=== PATIENT | female | born 1995 ===

== ENCOUNTER 2017-07-02 08:30 | Observation (INO) ==
[2017-07-02 09:20] LABS: Basophils % 0.6 % (0.0-0.8); Eosinophils # 0.1 10*3/uL (0.0-0.87); Eosinophils % 1.8 % (0.00-10.9); Hematocrit 38.2 VOL% (35.7-47.0); Hemoglobin 12.6 GM/DL (12.0-16.0); Immature Granulocytes % 0.4 %; Immature Granulocytes Absolute 0.03 #; Lymphocytes # 1.2 10*3/uL (1.4-4.0); Lymphocytes % 17.1 % (21.3-54.2); Mean Corpuscular Hemoglobin 30 PG (27-34); Mean Corpuscular Volume 90.7 FL (87-102); Mean Platelet Volume 10.5 FL (9.6-12.0); Monocytes # 0.5 10*3/uL (0.11-0.8); Neutrophils # 5.3 10*3/uL (1.4-7.4); Neutrophils % 73.1 % (38.7-73.9); Platelet Count 356 T/CUMM (130-400); Red Blood Count 4.21 MC/CUMM (3.8-5.5); Red Cell Distribution Width 12.9 % (9.3-17.3); White Blood Count 7.3 T/CUMM (4-12)
[2017-07-02 09:39] LABS: Bilirubin,Total 0.8 MG/DL (0.2-1.0); Osmolality,Calculated 274.5 MOS/KG (273-304)
[2017-07-02 09:53] LABS: Apearance,Urine CLEAR (Clear); Bilirubin,Urine Negative (Negative); Blood, Urine Negative (Negative); Glucose,Urine (UA) Negative (Negative); Ketones,Urine Negative (Negative); Mucus,Urine Occasional /LPF (Occasional); Nitrite,Urine Negative (Negative); Protein,Urine Negative; Squamous Epithelial Cell,Urine Occasional /HPF (0-10); Urine Color Yellow (Yellow); WBC,Urine 1 /HPF (0-6)
[2017-07-02] MEDS ORDERED: LEVOFLOXACIN INJ 500 MG in PREMIX 1 EACH IV ONE (11:57)
[2017-07-02] MEDS ORDERED: MORPHINE 2 MG/1 ML SYRINGE IV PRN (12:01)
[2017-07-02] MEDS ORDERED: BUPIVACAINE 0.25% 50 ML VIAL ONE (12:15)
[2017-07-02] MEDS ORDERED: LIDOCAINE 1%/EPI INJ 20 ML VIAL ONE (12:15)
[2017-07-02] MEDS ORDERED: LEVOFLOXACIN INJ 100 ML IV ONE (12:17)
[2017-07-02] MEDS: LACTATED RINGERS 1,000 ML IV SCH (12:37)
[2017-07-02] MEDS ORDERED: HYDROmorphone 2 MG/1 ML VIAL ONE (13:51)
[2017-07-02] MEDS ORDERED: ONDANSETRON 4 MG/2 ML VIAL ONE ×2 (13:51→13:53)
[2017-07-02] MEDS ORDERED: fentaNYL 100 MCG/2 ML VIAL ONE (13:53)
[2017-07-02] MEDS ORDERED: DEXAMETHASONE 10 MG/1 ML VIAL ONE (13:53)
[2017-07-02] MEDS ORDERED: PROPOFOL 200 MG/20 ML VIAL IV ONE (13:53)
[2017-07-02] MEDS ORDERED: SEVOFLURANE 1 UNIT/15 MINUTE INH ONE (13:53)
[2017-07-02] MEDS ORDERED: NEOSTIGMINE 10 MG/10 ML VIAL ONE (13:54)
[2017-07-02] MEDS ORDERED: SUCCINYLCHOLINE 200 MG/10 ML VIAL ONE (13:54)
[2017-07-02] MEDS ORDERED: GLYCOPYRROLATE 0.4 MG/2 ML VIAL ONE (13:54)
[2017-07-02] MEDS ORDERED: ACETAMINOPHEN 1,000 MG/100 ML VIAL IV ONE (13:54)
[2017-07-02] MEDS ORDERED: ROCURONIUM 100 MG/10 ML VIAL IV ONE (13:54)
[2017-07-02] MEDS ORDERED: ONDANSETRON 4 MG/2 ML VIAL IV PRN (14:00)
[2017-07-02] MEDS ORDERED: LACTATED RINGERS 1,000 ML IV SCH (14:00)
[2017-07-02] MEDS: HYDROmorphone 2 MG/1 ML VIAL IV PRN ×2 (14:00→14:05)
[2017-07-03] MEDS: LACTATED RINGERS 1,000 ML IV SCH ×3 (00:53→11:40)
[2017-07-03] MEDS ORDERED: LEVOFLOXACIN INJ 500 MG in PREMIX 1 EACH IV SCH (06:00)
[2017-07-03] MEDS ORDERED: oxyCODONE/ACETAMINOPHEN 5-325 MG TABLET PO PRN (14:15)
[2017-07-03 16:49] VITALS: BP 100/59
== END 2017-07-03 17:59 | disposition home or self-care (01) ==
LOC: N.ED 08:30 → N.3E 12:38 → N.OR 12:38 → N.SDSINP 12:40 → N.3E 14:47
PROVIDERS: ADMIT Surgery; ATTEND Surgery

== ENCOUNTER 2018-05-14 17:48 | Inpatient (IN) ==
[2018-05-14 18:41] LABS: Apearance,Urine CLEAR (Clear); Bilirubin,Urine Negative (Negative); Blood, Urine Negative (Negative); Glucose,Urine (UA) Negative (Negative); Ketones,Urine 20 mg/dL (Negative); Mucus,Urine Occasional /LPF (Occasional); Nitrite,Urine Negative (Negative); Protein,Urine Negative; RBC,Urine <1 /HPF (0-4); Squamous Epithelial Cell,Urine Occasional /HPF (0-10); Urine Color Yellow (Yellow); WBC,Urine 1 /HPF (0-6)
[2018-05-14] MEDS: LACTATED RINGERS 1,000 ML IV SCH (22:45)
[2018-05-15] MEDS ORDERED: ACETAMINOPHEN 325 MG TABLET PO PRN ×2 (01:54→08:35)
[2018-05-15] MEDS ORDERED: ONDANSETRON 4 MG/2 ML VIAL IV PRN ×2 (01:54→08:35)
[2018-05-15] MEDS ORDERED: MEPERIDINE 50 MG/1 ML VIAL IV PRN (01:54)
[2018-05-15 05:02] LABS: Basophils % 0.4 % (0.0-0.8); Eosinophils # 0.1 10*3/uL (0.0-0.87); Eosinophils % 0.9 % (0.00-10.9); Hematocrit 26.9 VOL% (35.7-47.0); Hemoglobin 8.7 GM/DL (12.0-16.0); Immature Granulocytes % 0.4 %; Immature Granulocytes Absolute 0.03 #; Lymphocytes # 2.1 10*3/uL (1.4-4.0); Lymphocytes % 24.4 % (21.3-54.2); Mean Corpuscular HGB Conc 32.3 GM/DL (32-36); Mean Corpuscular Hemoglobin 28 PG (27-34); Mean Corpuscular Volume 87.6 FL (87-102); Mean Platelet Volume 10.7 FL (9.6-12.0); Monocytes # 0.7 10*3/uL (0.11-0.8); Monocytes % 8.5 % (1.7-12.7); Neutrophils # 5.6 10*3/uL (1.4-7.4); Neutrophils % 65.4 % (38.7-73.9); Platelet Count 295 T/CUMM (130-400); Red Blood Count 3.07 MC/CUMM (3.8-5.5); Red Cell Distribution Width 13.4 % (9.3-17.3); White Blood Count 8.5 T/CUMM (4-12)
[2018-05-15] MEDS ORDERED: CITRIC ACID/SODIUM CITRATE 30 ML UDCUP PO ONE (06:12)
[2018-05-15] MEDS ORDERED: FAMOTIDINE 20 MG/2 ML VIAL IV ONE (06:12)
[2018-05-15] MEDS ORDERED: CLINDAMYCIN INJ 900 MG in PREMIX 1 EACH IV ONE (06:13)
[2018-05-15] MEDS ORDERED: OXYTOCIN/LR 30 UNIT/1,000 ML BAG IV ONE (07:00)
[2018-05-15] MEDS ORDERED: OXYTOCIN 10 UNIT/ML VIAL IM ONE (07:11)
[2018-05-15] MEDS ORDERED: OXYTOCIN 10 UNIT/ML VIAL ONE (07:13)
[2018-05-15 08:28] LABS: Cord Arterial Blood HCO3 19.3 MMOL/L
[2018-05-15 08:29] LABS: Cord Venous Blood HCO3 22.4 MMOL/L; Cord Venous Blood PCO2 37.5 MMHG; Cord Venous Blood PO2 32.6 MMHG
[2018-05-15] MEDS ORDERED: OXYTOCIN/LR 20 UNIT/1,000 ML BAG IV ONE (08:35)
[2018-05-15] MEDS ORDERED: SIMETHICONE CHEW 80 MG TABLET PO PRN (08:35)
[2018-05-15] MEDS ORDERED: RHO(D) IMMUNE GLOBULIN 300 MCG SYRINGE IM ONE (08:35)
[2018-05-15] MEDS ORDERED: ALBUTEROL/IPRATROPIUM 3 ML NEB RESP TX PRN (08:37)
[2018-05-15] MEDS ORDERED: methylPREDNISolone SOD SUC 125 MG/2 ML VIAL IV ONE (08:44)
[2018-05-15] MEDS ORDERED: methylPREDNISolone SOD SUC 125 MG/2 ML VIAL ONE (08:49)
[2018-05-15] MEDS ORDERED: MORPHINE 10 MG/10 ML VIAL ONE (08:50)
[2018-05-15] MEDS: LACTATED RINGERS 1,000 ML IV SCH ×2 (08:50→17:05)
[2018-05-15 08:51] LABS: Apearance,Urine Slightly Hazy (Clear); Bilirubin,Urine Negative (Negative); Blood, Urine Negative (Negative); Glucose,Urine (UA) Negative (Negative); Ketones,Urine 20 mg/dL (Negative); Mucus,Urine Few /LPF (Occasional); Nitrite,Urine Negative (Negative); Protein,Urine Negative; RBC,Urine 1 /HPF (0-4); Squamous Epithelial Cell,Urine Occasional /HPF (0-10); Transitional Epi Cells,Urine Occasional /HPF (<1); Urine Color Yellow (Yellow); Urine Specific Gravity 1.016 (1.001-1.035); WBC,Urine 4 /HPF (0-6)
[2018-05-15] MEDS ORDERED: PROPOFOL 200 MG/20 ML VIAL IV ONE (10:44)
[2018-05-15] MEDS ORDERED: ONDANSETRON 4 MG/2 ML VIAL ONE (10:44)
[2018-05-15 11:58] LABS: Basophils % 0.2 % (0.0-0.8); Eosinophils % 0.1 % (0.00-10.9); Hematocrit 28.9 VOL% (35.7-47.0); Hemoglobin 9.2 GM/DL (12.0-16.0); Immature Granulocytes % 0.6 %; Immature Granulocytes Absolute 0.12 #; Lymphocytes % 5.2 % (21.3-54.2); Mean Corpuscular HGB Conc 31.8 GM/DL (32-36); Mean Corpuscular Hemoglobin 28 PG (27-34); Mean Corpuscular Volume 87.6 FL (87-102); Monocytes # 0.4 10*3/uL (0.11-0.8); Monocytes % 2.2 % (1.7-12.7); Neutrophils % 91.7 % (38.7-73.9); Platelet Count 323 T/CUMM (130-400); Red Cell Distribution Width 13.3 % (9.3-17.3); White Blood Count 19.6 T/CUMM (4-12)
[2018-05-15 12:41] LABS: Band Neutrophils 1 % (0-10); Lymphocytes 4 % (20-55); Segmented Neutrophils 92 % (50-85); Total Cells Counted 100
[2018-05-15 12:45] LABS: Anisocytosis 1+; Hypochromasia 1+; Platelet Estimate Normal
[2018-05-15] MEDS: CLINDAMYCIN INJ 900 MG in PREMIX 1 EACH IV SCH (15:49)
[2018-05-15] MEDS: IBUPROFEN 800 MG TABLET PO PRN (15:54)
[2018-05-15] MEDS ORDERED: diphenhydrAMINE 50 MG/1 ML VIAL IV PRN (17:26)
[2018-05-15 20:43] LABS: Basophils % 0.1 % (0.0-0.8); Hematocrit 24.6 VOL% (35.7-47.0); Immature Granulocytes % 0.5 %; Immature Granulocytes Absolute 0.07 #; Lymphocytes # 1.3 10*3/uL (1.4-4.0); Lymphocytes % 8.8 % (21.3-54.2); Mean Corpuscular HGB Conc 32.5 GM/DL (32-36); Mean Corpuscular Hemoglobin 29 PG (27-34); Mean Corpuscular Volume 87.9 FL (87-102); Mean Platelet Volume 10.9 FL (9.6-12.0); Monocytes # 1.1 10*3/uL (0.11-0.8); Monocytes % 7.3 % (1.7-12.7); Neutrophils # 12.6 10*3/uL (1.4-7.4); Neutrophils % 83.3 % (38.7-73.9); Platelet Count 295 T/CUMM (130-400); Red Cell Distribution Width 13.2 % (9.3-17.3); White Blood Count 15.2 T/CUMM (4-12)
[2018-05-16] MEDS: DOCUSATE SODIUM 100 MG CAPSULE PO SCH ×4 (01:17→21:52)
[2018-05-16] MEDS: CLINDAMYCIN INJ 900 MG in PREMIX 1 EACH IV SCH (01:18)
[2018-05-16] MEDS: LACTATED RINGERS 1,000 ML IV SCH (01:39)
[2018-05-16] MEDS: IBUPROFEN 800 MG TABLET PO PRN ×2 (04:23→16:31)
[2018-05-16 06:36] LABS: Basophils % 0.3 % (0.0-0.8); Eosinophils # 0.1 10*3/uL (0.0-0.87); Eosinophils % 0.4 % (0.00-10.9); Hemoglobin 7.3 GM/DL (12.0-16.0); Immature Granulocytes % 0.6 %; Immature Granulocytes Absolute 0.07 #; Lymphocytes # 2.4 10*3/uL (1.4-4.0); Lymphocytes % 19.9 % (21.3-54.2); Mean Corpuscular HGB Conc 31.7 GM/DL (32-36); Mean Corpuscular Hemoglobin 28 PG (27-34); Mean Corpuscular Volume 88.1 FL (87-102); Mean Platelet Volume 11.2 FL (9.6-12.0); Monocytes # 1.2 10*3/uL (0.11-0.8); Monocytes % 9.9 % (1.7-12.7); Neutrophils # 8.2 10*3/uL (1.4-7.4); Neutrophils % 68.9 % (38.7-73.9); Platelet Count 259 T/CUMM (130-400); Red Blood Count 2.61 MC/CUMM (3.8-5.5); Red Cell Distribution Width 13.5 % (9.3-17.3); White Blood Count 11.9 T/CUMM (4-12)
[2018-05-16] MEDS ORDERED: METOCLOPRAMIDE 10 MG TABLET PO PRN (09:00)
[2018-05-16] MEDS: MAGNESIUM HYDROXIDE SUSP 30 ML UDCUP PO PRN (09:05)
[2018-05-16] MEDS: MULTIVITAMIN (PRENATAL) TABLET PO SCH ×2 (09:06→09:30)
[2018-05-16] MEDS: FERROUS SULFATE 325 MG TABLET PO SCH ×2 (09:06→21:52)
[2018-05-16] MEDS ORDERED: SODIUM CHLORIDE 0.9% 1,000 ML IV PRN (09:09)
[2018-05-16 18:27] LABS: Hematocrit 30.7 VOL% (35.7-47.0)
[2018-05-17] MEDS: IBUPROFEN 800 MG TABLET PO PRN ×2 (04:04→10:10)
[2018-05-17 05:38] LABS: Hematocrit 29.4 VOL% (35.7-47.0); Hemoglobin 9.6 GM/DL (12.0-16.0)
[2018-05-17] MEDS: FERROUS SULFATE 325 MG TABLET PO SCH (08:44)
[2018-05-17] MEDS: MULTIVITAMIN (PRENATAL) TABLET PO SCH (08:44)
[2018-05-17] MEDS: DOCUSATE SODIUM 100 MG CAPSULE PO SCH (08:44)
[2018-05-17] MEDS: MAGNESIUM HYDROXIDE SUSP 30 ML UDCUP PO PRN (08:45)
[2018-05-17 11:33] VITALS: BP 117/71
== END 2018-05-17 13:20 | disposition home or self-care (01) | DRG 540 ==
LOC: N.LDOUT 17:48 → N.LD 17:52 → N.OB 05-15 13:56
PROVIDERS: ADMIT Obstetrics & Gynecology; ATTEND Obstetrics & Gynecology
PROC: LDCSECT (ICD-10-PCS; 2018-05-15 07:30)

== ENCOUNTER 2019-11-22 20:13 | Observation (INO) ==
[2019-11-22 21:52] LABS: Basophils % 0.4 % (0.0-0.8); Eosinophils % 0.3 % (0.00-10.9); Hemoglobin 10.2 GM/DL (12.0-16.0); Immature Granulocytes % 0.8 %; Immature Granulocytes Absolute 0.09 #; Lymphocytes # 1.8 10*3/uL (1.4-4.0); Lymphocytes % 16.2 % (21.3-54.2); Neutrophils % 78.3 % (38.7-73.9); Platelet Count 317 T/CUMM (130-400); Red Blood Count 3.26 MC/CUMM (3.8-5.5); Red Cell Distribution Width 13.2 % (9.3-17.3); White Blood Count 11.3 T/CUMM (4-12)
[2019-11-22 22:11] LABS: Calcium 8.8 MG/DL (8.5-10.1); Osmolality,Calculated 273.7 MOS/KG (273-304)
[2019-11-23] MEDS ORDERED: IBUPROFEN 800 MG TABLET PO PRN (00:06)
[2019-11-23] MEDS ORDERED: MAGNESIUM HYDROXIDE SUSP 30 ML UDCUP PO PRN (00:06)
[2019-11-23] MEDS ORDERED: BISACODYL 10 MG SUPP RECTAL PRN (00:06)
[2019-11-23] MEDS ORDERED: ONDANSETRON 4 MG/2 ML VIAL IV PRN (00:06)
[2019-11-23] MEDS ORDERED: ACETAMINOPHEN 325 MG TABLET PO PRN (00:06)
[2019-11-23] MEDS ORDERED: LACTATED RINGERS 1,000 ML IV SCH (00:30)
[2019-11-23 07:44] VITALS: BP 91/56
[2019-11-23] MEDS ORDERED: DOCUSATE SODIUM 100 MG CAPSULE PO SCH (09:00)
== END 2019-11-23 11:21 | disposition home or self-care (01) ==
LOC: N.EDINP 20:13 → N.ED 20:13 → N.3E 11-23 00:42
PROVIDERS: ADMIT Obstetrics & Gynecology; ATTEND Obstetrics & Gynecology

== ENCOUNTER 2020-04-15 03:25 | Inpatient (IN) ==
[2020-04-15] MEDS ORDERED: CITRIC ACID/SODIUM CITRATE 30 ML UDCUP PO ONE (03:46)
[2020-04-15] MEDS ORDERED: FAMOTIDINE 20 MG/2 ML VIAL IV ONE (03:46)
[2020-04-15] MEDS ORDERED: CLINDAMYCIN INJ 900 MG in PREMIX 1 EACH IV ONE (03:46)
[2020-04-15] MEDS ORDERED: TERBUTALINE 1 MG/1 ML VIAL SUBCUT PRN (03:51)
[2020-04-15] MEDS ORDERED: MEPERIDINE 25 MG/1 ML VIAL IV PRN (03:52)
[2020-04-15] MEDS ORDERED: MEPERIDINE 50 MG/1 ML VIAL ONE ×2 (03:54→14:38)
[2020-04-15] MEDS: MEPERIDINE 50 MG/1 ML VIAL IV PRN ×4 (04:00→20:14)
[2020-04-15 04:25] LABS: Basophils % 0.3 % (0.0-0.8); Eosinophils # 0.1 10*3/uL (0.0-0.87); Eosinophils % 0.6 % (0.00-10.9); Hemoglobin 8.7 GM/DL (12.0-16.0); Immature Granulocytes % 0.7 %; Immature Granulocytes Absolute 0.07 #; Lymphocytes # 3.9 10*3/uL (1.4-4.0); Lymphocytes % 41.5 % (21.3-54.2); Mean Corpuscular HGB Conc 32.2 GM/DL (32-36); Mean Corpuscular Volume 83.9 FL (87-102); Mean Platelet Volume 11.1 FL (9.6-12.0); Monocytes % 6.8 % (1.7-12.7); Neutrophils % 50.1 % (38.7-73.9); Platelet Count 323 T/CUMM (130-400); Red Blood Count 3.22 MC/CUMM (3.8-5.5); Red Cell Distribution Width 14.6 % (9.3-17.3); White Blood Count 9.4 T/CUMM (4-12)
[2020-04-15] MEDS: LACTATED RINGERS 1,000 ML IV SCH ×2 (04:27→08:01)
[2020-04-15 04:44] LABS: Alanine Aminotransferase < 9 U/L (13-56); Albumin 2.6 G/DL (3.4-5.0); Alkaline Phosphatase 183 U/L (45-117); Aspartate Amino Transferase 14 U/L (0-37); Blood Urea Nitrogen 7 MG/DL (7-18); Calcium 8.6 MG/DL (8.5-10.1); Estimated Glom Filtration Rate 138 ML/MIN; Glucose 79 MG/DL (74-106); Osmolality,Calculated 273.5 MOS/KG (273-304); Total Protein 7.2 G/DL (6.4-8.3)
[2020-04-15] MEDS ORDERED: TRANEXAMIC ACID 1,000 MG/10 ML VIAL ONE (07:25)
[2020-04-15] MEDS ORDERED: miSOPROStoL 200 MCG TABLET ONE (07:25)
[2020-04-15] MEDS ORDERED: OXYTOCIN/LR 20 UNIT/1,000 ML BAG IV ONE ×2 (07:25→10:00)
[2020-04-15] MEDS ORDERED: METHYLERGONOVINE 0.2 MG/1 ML AMP ONE (07:25)
[2020-04-15] MEDS ORDERED: CARBOPROST TROMETHAMINE 250 MCG/ML AMP IM ONE (07:26)
[2020-04-15] MEDS ORDERED: OXYTOCIN 10 UNIT/ML VIAL ONE (07:27)
[2020-04-15] MEDS ORDERED: SODIUM CHLORIDE 0.9% 0 ML IV ONE (07:28)
[2020-04-15] MEDS ORDERED: BUPIVACAINE SPINAL 0.75% 2 ML AMP SPINAL ONE (08:25)
[2020-04-15] MEDS ORDERED: ONDANSETRON 4 MG/2 ML VIAL ONE (08:25)
[2020-04-15] MEDS ORDERED: fentaNYL 100 MCG/2 ML VIAL ONE (08:25)
[2020-04-15] MEDS ORDERED: MIDAZOLAM 2 MG/2 ML VIAL ONE (08:59)
[2020-04-15] MEDS ORDERED: KETOROLAC 30 MG/1 ML VIAL ONE (09:03)
[2020-04-15] MEDS ORDERED: BUPIVACAINE MPF 0.5% /EPI 30 ML VIAL ONE (09:03)
[2020-04-15 09:09] LABS: Cord Arterial Blood HCO3 22.2 MMOL/L
[2020-04-15 09:10] LABS: Cord Venous Blood HCO3 24.2 MMOL/L; Cord Venous Blood PCO2 44.6 MMHG; Cord Venous Blood PO2 28.1 MMHG
[2020-04-15 09:25] LABS: Bacteria,Urine Occasional /HPF (Few); Bilirubin,Urine Negative (Negative); Blood, Urine Negative (Negative); Glucose,Urine (UA) Negative (Negative); Ketones,Urine Negative (Negative); Mucus,Urine Many /LPF (Occasional); Nitrite,Urine Negative (Negative); Protein,Urine Negative; RBC,Urine 1 /HPF (0-4); Squamous Epithelial Cell,Urine Few /HPF (0-10); Urine Appearance CLEAR (Clear); Urine Color Yellow (Yellow); Urine Specific Gravity 1.025 (1.001-1.035); WBC,Urine 1 /HPF (0-6)
[2020-04-15] MEDS ORDERED: DEXAMETHASONE 4 MG/1 ML VIAL ONE (09:34)
[2020-04-15] MEDS ORDERED: ACETAMINOPHEN 325 MG TABLET PO PRN (10:00)
[2020-04-15] MEDS ORDERED: MAGNESIUM HYDROXIDE SUSP 30 ML UDCUP PO PRN (10:00)
[2020-04-15] MEDS ORDERED: LACTATED RINGERS 1,000 ML IV SCH (10:00)
[2020-04-15] MEDS ORDERED: SIMETHICONE CHEW 80 MG TABLET PO PRN (10:00)
[2020-04-15] MEDS ORDERED: RHO(D) IMMUNE GLOBULIN 300 MCG SYRINGE IM ONE (10:00)
[2020-04-15] MEDS ORDERED: diphenhydrAMINE 50 MG/1 ML VIAL IV ONE (11:17)
[2020-04-15] MEDS ORDERED: diphenhydrAMINE 50 MG/1 ML VIAL ONE (11:18)
[2020-04-15 15:57] LABS: Basophils % 0.1 % (0.0-0.8); Hematocrit 22.1 VOL% (35.7-47.0); Hemoglobin 7.2 GM/DL (12.0-16.0); Immature Granulocytes % 0.4 %; Immature Granulocytes Absolute 0.05 #; Lymphocytes # 1.1 10*3/uL (1.4-4.0); Lymphocytes % 7.7 % (21.3-54.2); Mean Corpuscular HGB Conc 32.6 GM/DL (32-36); Mean Corpuscular Volume 83.4 FL (87-102); Mean Platelet Volume 11.5 FL (9.6-12.0); Neutrophils % 89.8 % (38.7-73.9); Platelet Count 277 T/CUMM (130-400); Red Blood Count 2.65 MC/CUMM (3.8-5.5); Red Cell Distribution Width 14.5 % (9.3-17.3); White Blood Count 14.2 T/CUMM (4-12)
[2020-04-15] MEDS ORDERED: SODIUM CHLORIDE 0.9% 1,000 ML IV PRN (16:24)
[2020-04-15] MEDS: CLINDAMYCIN INJ 900 MG in PREMIX 1 EACH IV SCH (17:44)
[2020-04-15] MEDS ORDERED: ACETAMINOPHEN/CODEINE 300-30 MG TABLET PO PRN (19:25)
[2020-04-15] MEDS: KETOROLAC 30 MG/1 ML VIAL IV PRN (19:45)
[2020-04-15] MEDS: DOCUSATE SODIUM 100 MG CAPSULE PO SCH (20:07)
[2020-04-15] MEDS: ONDANSETRON 4 MG/2 ML VIAL IV PRN (20:15)
[2020-04-16] MEDS: KETOROLAC 30 MG/1 ML VIAL IV PRN ×2 (00:35→06:33)
[2020-04-16] MEDS: CLINDAMYCIN INJ 900 MG in PREMIX 1 EACH IV SCH (00:38)
[2020-04-16] MEDS: ONDANSETRON 4 MG/2 ML VIAL IV PRN (06:24)
[2020-04-16 06:30] LABS: Basophils # 0.1 10*3/uL (0.0-0.2); Basophils % 0.4 % (0.0-0.8); Eosinophils # 0.1 10*3/uL (0.0-0.87); Eosinophils % 0.4 % (0.00-10.9); Hematocrit 25.5 VOL% (35.7-47.0); Hemoglobin 8.5 GM/DL (12.0-16.0); Immature Granulocytes % 0.9 %; Immature Granulocytes Absolute 0.13 #; Lymphocytes # 2.6 10*3/uL (1.4-4.0); Lymphocytes % 18.6 % (21.3-54.2); Mean Corpuscular HGB Conc 33.3 GM/DL (32-36); Mean Corpuscular Volume 85.6 FL (87-102); Mean Platelet Volume 11.3 FL (9.6-12.0); Monocytes % 9.1 % (1.7-12.7); Neutrophils % 70.6 % (38.7-73.9); Platelet Count 261 T/CUMM (130-400); Red Blood Count 2.98 MC/CUMM (3.8-5.5); Red Cell Distribution Width 14.4 % (9.3-17.3); White Blood Count 14.1 T/CUMM (4-12)
[2020-04-16] MEDS: METOCLOPRAMIDE 10 MG TABLET PO SCH (09:29)
[2020-04-16] MEDS: DOCUSATE SODIUM 100 MG CAPSULE PO SCH ×2 (09:29→20:57)
[2020-04-16] MEDS: MULTIVITAMIN (PRENATAL) TABLET PO SCH (09:29)
[2020-04-16] MEDS: IBUPROFEN 800 MG TABLET PO PRN ×2 (09:35→23:13)
[2020-04-16] MEDS: oxyCODONE/ACETAMINOPHEN 5-325 MG TABLET PO PRN ×2 (14:16→23:12)
[2020-04-16] MEDS: FERROUS SULFATE 325 MG TABLET PO SCH ×2 (14:18→20:54)
[2020-04-17] MEDS: oxyCODONE/ACETAMINOPHEN 5-325 MG TABLET PO PRN (07:46)
[2020-04-17] MEDS: DOCUSATE SODIUM 100 MG CAPSULE PO SCH (07:47)
[2020-04-17] MEDS: METOCLOPRAMIDE 10 MG TABLET PO SCH ×2 (07:47)
[2020-04-17] MEDS: MULTIVITAMIN (PRENATAL) TABLET PO SCH (07:47)
[2020-04-17] MEDS: FERROUS SULFATE 325 MG TABLET PO SCH (07:47)
[2020-04-17 12:36] VITALS: BP 110/87
== END 2020-04-17 15:15 | disposition home or self-care (01) | DRG 540 ==
LOC: N.LDOUT 03:25 → N.LD 03:26 → N.OB 13:35
PROVIDERS: ADMIT Obstetrics & Gynecology; ATTEND Obstetrics & Gynecology
PROC: LDCSECT (ICD-10-PCS; 2020-04-15 08:30)

== ENCOUNTER 2021-12-13 09:59 | Inpatient (IN) ==
[2021-12-13] MEDS ORDERED: CARBOPROST TROMETHAMINE 250 MCG/ML AMP IM PRN (10:56)
[2021-12-13] MEDS ORDERED: LACTATED RINGERS 500 ML IV PRN (10:56)
[2021-12-13] MEDS ORDERED: ONDANSETRON 4 MG/2 ML VIAL IV PRN ×2 (10:56→16:55)
[2021-12-13] MEDS ORDERED: TRANEXAMIC ACID 1,000 MG in SODIUM CHLORIDE 0.9% 100 ML IV PRN (10:56)
[2021-12-13] MEDS ORDERED: OXYTOCIN/LR 20 UNIT/1,000 ML BAG IV ONE ×3 (10:56→16:55)
[2021-12-13] MEDS ORDERED: METHYLERGONOVINE 0.2 MG/1 ML AMP IM PRN (10:56)
[2021-12-13] MEDS ORDERED: miSOPROStoL 200 MCG TABLET RECTAL PRN (10:56)
[2021-12-13] MEDS ORDERED: LACTATED RINGERS 250 ML IV ONE (10:56)
[2021-12-13] MEDS: LACTATED RINGERS 1,000 ML IV SCH ×2 (11:10→13:19)
[2021-12-13 11:23] LABS: Basophils % 0.3 % (0.0-0.8); Eosinophils # 0.1 10*3/uL (0.0-0.87); Eosinophils % 1.2 % (0.00-10.9); Hematocrit 27.7 VOL% (35.7-47.0); Hemoglobin 8.9 GM/DL (12.0-16.0); Immature Granulocytes % 0.7 %; Immature Granulocytes Absolute 0.05 #; Lymphocytes # 2.1 10*3/uL (1.4-4.0); Lymphocytes % 28.7 % (21.3-54.2); Mean Corpuscular HGB Conc 32.1 GM/DL (32-36); Mean Corpuscular Volume 85.8 FL (87-102); Monocytes # 0.4 10*3/uL (0.11-0.8); Monocytes % 5.9 % (1.7-12.7); Neutrophils % 63.2 % (38.7-73.9); Platelet Count 254 T/CUMM (130-400); Red Blood Count 3.23 MC/CUMM (3.8-5.5); Red Cell Distribution Width 13.9 % (9.3-17.3); White Blood Count 7.4 T/CUMM (4-12)
[2021-12-13] MEDS ORDERED: FAMOTIDINE 20 MG/2 ML VIAL IV ONE (12:32)
[2021-12-13] MEDS ORDERED: CLINDAMYCIN INJ 900 MG/50 ML PREMIX IV ONE (12:32)
[2021-12-13] MEDS ORDERED: CITRIC ACID/SODIUM CITRATE 30 ML UDCUP PO ONE (12:32)
[2021-12-13] MEDS ORDERED: LACTATED RINGERS 1,000 ML IV SCH ×2 (13:00→17:00)
[2021-12-13 13:07] LABS: INR 0.9; PT Patient Result 10.1 SECS (10.1-12.1)
[2021-12-13 13:22] LABS: Albumin 2.6 G/DL (3.4-5.0); Bilirubin,Total 0.7 MG/DL (0.20-1.00); Calcium 8.3 MG/DL (8.5-10.1); Osmolality,Calculated 272.5 MOS/KG (273-304); Potassium 3.7 MMOL/L (3.5-5.1); Total Protein 6.7 G/DL (6.4-8.2)
[2021-12-13] MEDS ORDERED: ONDANSETRON 4 MG/2 ML VIAL ONE (14:52)
[2021-12-13] MEDS ORDERED: BUPIVACAINE SPINAL 0.75% 2 ML AMP SPINAL ONE (14:52)
[2021-12-13] MEDS ORDERED: buprenorphine HCL 0.3 MG/ML VIAL ONE (14:52)
[2021-12-13] MEDS ORDERED: OXYTOCIN/LR 30 UNIT/1,000 ML BAG IV ONE (14:53)
[2021-12-13] MEDS ORDERED: OXYTOCIN 10 UNIT/ML VIAL IM ONE (14:53)
[2021-12-13] MEDS ORDERED: SODIUM CHLORIDE 0.9% 0 ML IV ONE (15:05)
[2021-12-13] MEDS ORDERED: TRANEXAMIC ACID 1,000 MG/10 ML VIAL ONE (15:05)
[2021-12-13] MEDS ORDERED: miSOPROStoL 200 MCG TABLET ONE (15:05)
[2021-12-13] MEDS ORDERED: METHYLERGONOVINE 0.2 MG/1 ML AMP ONE (15:05)
[2021-12-13 16:19] LABS: Bilirubin,Urine Negative (Negative); Blood, Urine Negative (Negative); Glucose,Urine (UA) Negative (Negative); Ketones,Urine Negative (Negative); Nitrite,Urine Negative (Negative); Protein,Urine Negative (Negative); Urine Appearance Clear (Clear); Urine Color Yellow (Yellow)
[2021-12-13] MEDS ORDERED: KETOROLAC 30 MG/1 ML VIAL ONE (16:20)
[2021-12-13] MEDS ORDERED: PHENYLEPHRINE 1 MG/10 ML SYRINGE IV ONE (16:20)
[2021-12-13 16:30] LABS: Cord Arterial Blood HCO3 22.4 MMOL/L
[2021-12-13 16:31] LABS: Bacteria,Urine Occasional /HPF (Few); Squamous Epithelial Cell,Urine Moderate /HPF (0-10)
[2021-12-13 16:32] LABS: Cord Venous Blood HCO3 22.8 MMOL/L; Cord Venous Blood PCO2 43.6 MMHG; Cord Venous Blood PO2 29.6
[2021-12-13] MEDS ORDERED: ACETAMINOPHEN 325 MG TABLET PO PRN (16:55)
[2021-12-13] MEDS ORDERED: RHO(D) IMMUNE GLOBULIN 300 MCG SYRINGE IM ONE (16:55)
[2021-12-13] MEDS ORDERED: SIMETHICONE CHEW 80 MG TABLET PO PRN (16:55)
[2021-12-13] MEDS ORDERED: diphenhydrAMINE 50 MG/1 ML VIAL IV PRN (16:58)
[2021-12-13] MEDS ORDERED: HYDROmorphone 1 MG/1 ML SYRINGE IV PRN (16:58)
[2021-12-13] MEDS ORDERED: hydrOXYzine HCL 25 MG/1 ML VIAL IM PRN (16:58)
[2021-12-13] MEDS ORDERED: PROMETHAZINE 25 MG/1 ML VIAL IM ONE (17:19)
[2021-12-13] MEDS: ACETAMINOPHEN 500 MG TABLET PO SCH (19:27)
[2021-12-13] MEDS ORDERED: ACETAMINOPHEN 500 MG TABLET PO SCH (20:00)
[2021-12-13] MEDS ORDERED: SODIUM CHLORIDE 0.9% 1,000 ML IV PRN (20:16)
[2021-12-13] MEDS: IBUPROFEN 800 MG TABLET PO PRN (22:22)
[2021-12-14] MEDS: DOCUSATE SODIUM 100 MG CAPSULE PO SCH ×3 (03:51→21:26)
[2021-12-14] MEDS: KETOROLAC 30 MG/1 ML VIAL IV SCH ×4 (03:51→11:52)
[2021-12-14] MEDS: CLINDAMYCIN INJ 900 MG/50 ML PREMIX IV SCH ×2 (03:52→11:54)
[2021-12-14 07:29] LABS: Basophils % 0.2 % (0.0-0.8); Eosinophils # 0.1 10*3/uL (0.0-0.87); Eosinophils % 1.2 % (0.00-10.9); Hematocrit 27.7 VOL% (35.7-47.0); Hemoglobin 8.9 GM/DL (12.0-16.0); Immature Granulocytes % 0.4 %; Immature Granulocytes Absolute 0.04 #; Lymphocytes # 1.9 10*3/uL (1.4-4.0); Lymphocytes % 20.7 % (21.3-54.2); Mean Corpuscular HGB Conc 32.1 GM/DL (32-36); Mean Corpuscular Volume 85.8 FL (87-102); Mean Platelet Volume 12.1 FL (9.6-12.0); Monocytes # 0.5 10*3/uL (0.11-0.8); Monocytes % 5.1 % (1.7-12.7); Neutrophils % 72.4 % (38.7-73.9); Platelet Count 220 T/CUMM (130-400); Red Blood Count 3.23 MC/CUMM (3.8-5.5); White Blood Count 9.2 T/CUMM (4-12)
[2021-12-14] MEDS: MULTIVITAMIN (PRENATAL) TABLET PO SCH ×2 (08:29→08:31)
[2021-12-14] MEDS: METOCLOPRAMIDE 10 MG TABLET PO SCH ×3 (08:31→23:46)
[2021-12-14] MEDS: FERROUS SULFATE 325 MG TABLET PO SCH ×2 (08:31→21:26)
[2021-12-14] MEDS: MAGNESIUM HYDROXIDE SUSP 30 ML UDCUP PO PRN ×2 (10:10→21:26)
[2021-12-14] MEDS: ACETAMINOPHEN 500 MG TABLET PO SCH (10:17)
[2021-12-14] MEDS ORDERED: CLINDAMYCIN INJ 900 MG/50 ML PREMIX IV ONE (11:37)
[2021-12-14 11:57] LABS: Basophils % 0.2 % (0.0-0.8); Eosinophils # 0.2 10*3/uL (0.0-0.87); Eosinophils % 1.9 % (0.00-10.9); Hematocrit 30.2 VOL% (35.7-47.0); Hemoglobin 9.7 GM/DL (12.0-16.0); Immature Granulocytes % 0.6 %; Immature Granulocytes Absolute 0.05 #; Lymphocytes # 2.1 10*3/uL (1.4-4.0); Lymphocytes % 22.7 % (21.3-54.2); Mean Corpuscular HGB Conc 32.1 GM/DL (32-36); Mean Corpuscular Volume 85.3 FL (87-102); Mean Platelet Volume 11.7 FL (9.6-12.0); Monocytes # 0.4 10*3/uL (0.11-0.8); Monocytes % 4.6 % (1.7-12.7); Platelet Count 236 T/CUMM (130-400); Red Blood Count 3.54 MC/CUMM (3.8-5.5); Red Cell Distribution Width 14.2 % (9.3-17.3); White Blood Count 9.1 T/CUMM (4-12)
[2021-12-14] MEDS: IBUPROFEN 800 MG TABLET PO PRN ×2 (16:17→22:16)
[2021-12-14 20:08] LABS: Basophils % 0.1 % (0.0-0.8); Eosinophils # 0.1 10*3/uL (0.0-0.87); Eosinophils % 1.6 % (0.00-10.9); Hemoglobin 9.1 GM/DL (12.0-16.0); Immature Granulocytes % 0.6 %; Immature Granulocytes Absolute 0.05 #; Lymphocytes # 1.9 10*3/uL (1.4-4.0); Lymphocytes % 21.2 % (21.3-54.2); Mean Corpuscular HGB Conc 32.5 GM/DL (32-36); Mean Corpuscular Volume 85.6 FL (87-102); Mean Platelet Volume 11.7 FL (9.6-12.0); Monocytes # 0.6 10*3/uL (0.11-0.8); Monocytes % 7.1 % (1.7-12.7); Neutrophils % 69.4 % (38.7-73.9); Platelet Count 239 T/CUMM (130-400); Red Blood Count 3.27 MC/CUMM (3.8-5.5); Red Cell Distribution Width 14.3 % (9.3-17.3); White Blood Count 8.7 T/CUMM (4-12)
[2021-12-15] MEDS ORDERED: LACTATED RINGERS 1,000 ML IV ONE (01:00)
[2021-12-15] MEDS ORDERED: KETOROLAC 30 MG/1 ML VIAL IV ONE (03:34)
[2021-12-15] MEDS ORDERED: BUTALBITAL/ACETAMIN/CAFFEINE 50-325-40 MG TABLET PO PRN (07:15)
[2021-12-15] MEDS ORDERED: SUMAtriptan 6 MG/0.5 ML VIAL SUBCUT SCH (07:30)
[2021-12-15] MEDS ORDERED: NEOSTIGMINE 10 MG/10 ML VIAL ONE (08:07)
[2021-12-15] MEDS ORDERED: ATROPINE 0.4 MG/1 ML VIAL ONE (08:07)
[2021-12-15] MEDS ORDERED: SODIUM CHLORIDE 0.9% 100 ML IV ONE (08:08)
[2021-12-15] MEDS ORDERED: KETOROLAC 30 MG/1 ML VIAL ONE (08:26)
[2021-12-15] MEDS ORDERED: MEPERIDINE 50 MG/1 ML VIAL ONE (11:50)
[2021-12-15] MEDS ORDERED: MEPERIDINE 25 MG/1 ML VIAL IV ONE (12:01)
[2021-12-15] MEDS ORDERED: ONDANSETRON 4 MG/2 ML VIAL IV ONE (12:01)
[2021-12-15] MEDS: FERROUS SULFATE 325 MG TABLET PO SCH ×2 (15:05→23:47)
[2021-12-15] MEDS: DOCUSATE SODIUM 100 MG CAPSULE PO SCH ×3 (15:05→20:49)
[2021-12-15] MEDS: METOCLOPRAMIDE 10 MG TABLET PO SCH ×3 (15:05→23:47)
[2021-12-15] MEDS: MULTIVITAMIN (PRENATAL) TABLET PO SCH (18:52)
[2021-12-15] MEDS: IBUPROFEN 800 MG TABLET PO PRN (19:26)
[2021-12-16] MEDS: IBUPROFEN 800 MG TABLET PO PRN (05:40)
[2021-12-16 08:21] VITALS: BP 107/63
[2021-12-16] MEDS: MULTIVITAMIN (PRENATAL) TABLET PO SCH (09:00)
[2021-12-16] MEDS: METOCLOPRAMIDE 10 MG TABLET PO SCH (09:00)
[2021-12-16] MEDS: DOCUSATE SODIUM 100 MG CAPSULE PO SCH (09:01)
[2021-12-16] MEDS: FERROUS SULFATE 325 MG TABLET PO SCH (09:01)
== END 2021-12-16 13:40 | disposition home or self-care (01) | DRG 539 ==
LOC: N.OB 09:59 → N.LD 16:30 → N.OB 20:33
PROVIDERS: ADMIT Obstetrics & Gynecology; ATTEND Obstetrics & Gynecology